=== PATIENT | male | born 1960 | race African-American/Black ===

== ENCOUNTER 2017-09-19 23:50 | Emergency (ER) | payer OTHER ==
[~2017-09-19] VITALS: Ht 180.3 cm; Wt 84.0 kg
[2017-09-20] MEDS ORDERED: IPRATROPIUM BROMIDE (0.02%) 0.5MG/2.5ML NEB HHN STA (00:20)
[2017-09-20] MEDS ORDERED: ALBUTEROL (0.083%) 2.5MG/3ML NEB HHN STA (00:20)
[2017-09-20] MEDS ORDERED: METHYLPREDNISOLONE SOD SUCC 125 MG/2 ML VIAL IV STA (00:20)
[2017-09-20 00:45] LABS: BASOPHILS % 1.5 % (0.0-2.0); EOSINOPHILS % 14.6 % (0.0-5.0); HEMOGLOBIN. 13.1 g/dL (14.0-18.0); LYMPHOCYTES % 23.8 % (20.0-50.0); MEAN CORPUSCULAR HEMOGLOBIN 28.5 pg (28.0-32.0); MEAN CORPUSCULAR VOLUME 85.2 fL (80.0-94.0); MEAN PLATELET VOLUME 8.8 fl (7.4-10.4); MONOCYTES % 10.7 % (2.0-8.0); NEUTROPHILS % 49.4 % (40.0-76.0); PLATELET 205 x1000/uL (130-400); RED BLOOD CELL COUNT 4.58 mill/uL (4.7-6.1); RED CELL DISTRIBUTION WIDTH 13.9 % (11.6-14.6)
[2017-09-20 00:48] LABS: CHLORIDE 112 mEq/L (98-107)
[2017-09-20] MEDS ORDERED: ALBUTEROL (0.5%) 2.5MG/0.5ML NEB HHN ONE (02:00)
[2017-09-20] MEDS ORDERED: SODIUM CHLORIDE 0.9% 1,000 ML IV ONE (02:00)
[2017-09-20] MEDS ORDERED: ALBUTEROL (0.083%) 2.5MG/3ML NEB ONE (02:40)
[2017-09-20 04:01] VITALS: BP 143/86
== END 2017-09-20 04:03 | disposition home or self-care (01) ==
LOC: ER 23:50
DX: J45.901 Unspecified asthma with (acute) exacerbation (principal)
CPT/HCPCS: 36415; 71045; 80053; 85025; 93005; 94640; 96361; 96374; 99285; J2930; J7030; J7611; Z7610

== ENCOUNTER 2018-08-09 06:10 | Emergency (ER) | payer OTHER ==
[~2018-08-09] VITALS: Ht 177.8 cm; Wt 84.0 kg
[2018-08-09] MEDS ORDERED: PREDNISONE 20MG TABLET PO STA (06:40)
[2018-08-09] MEDS ORDERED: IPRATROPIUM BROMIDE (0.02%) 0.5MG/2.5ML NEB HHN STA ×2 (06:40→09:40)
[2018-08-09] MEDS ORDERED: ALBUTEROL (0.083%) 2.5MG/3ML NEB HHN STA ×2 (06:40→07:52)
[2018-08-09 07:12] LABS: BG BASE EXCESS -1.2 mmol/L (-2.0-2.0); BG CARBOXYHEMOGLOBIN 2.6 % (0.5-1.5); BG DEOXYHEMOGLOBIN 13.7 % (0.0-5.0); BG FRACTION INSPIRED OXYGEN 50; BG HCO3 ACT 24.4 mmol/L (22.0-26.0); BG METHEMOGLOBIN 0.2 % (0.0-1.5); BG OXYGEN SATURATION 85.9 % (92.0-98.5); BG OXYHEMOGLOBIN 83.5 % (94.0-97.0); BG PCO2 44.2 mmHg (35.0-45.0); BG PO2 51.9 mmHg (75.0-100.0); BG SAMPLE SITE OTHER; BG TOTAL HEMOGLOBIN 14.3 g/dL (12.0-18.0)
[2018-08-09 07:31] LABS: BASOPHILS % 2.6 % (0.0-2.0); HEMATOCRIT. 43.9 % (42.0-52.0); HEMOGLOBIN. 14.2 g/dL (14.0-18.0); LYMPHOCYTES % 29.6 % (20.0-50.0); MEAN CORPUSCULAR HEMOGLOBIN 27.8 pg (28.0-32.0); MEAN CORPUSCULAR VOLUME 86.2 fL (80.0-94.0); MEAN PLATELET VOLUME 9.8 fl (7.4-10.4); MONOCYTES % 13.7 % (2.0-8.0); NEUTROPHILS % 43.1 % (40.0-76.0); PLATELET 242 x1000/uL (130-400); RED BLOOD CELL COUNT 5.09 mill/uL (4.7-6.1); RED CELL DISTRIBUTION WIDTH 13.7 % (11.6-14.6)
[2018-08-09 07:38] LABS: CHLORIDE 108 mEq/L (98-107)
[2018-08-09 11:22] VITALS: BP 154/90
[2018-10-17] MEDS ORDERED: ALBUTEROL (15:19)
== END 2018-08-09 11:26 | disposition home or self-care (01) ==
LOC: ER 06:10
DX: J45.901 Unspecified asthma with (acute) exacerbation (principal)
CPT/HCPCS: 36415; 36600; 71045; 80053; 82375; 82805; 85025; 93005; 94640; 99285; J7512; J7611; Z7610

== ENCOUNTER 2018-12-20 02:27 | Emergency (ER) | payer OTHER ==
[~2018-12-20] VITALS: Ht 180.3 cm; Wt 87.0 kg
[~2018-12-20 02:27] MED LIST: ALBUTEROL
[2018-12-20 02:35] VITALS: BP 127/60
[2018-12-20] MEDS ORDERED: IPRATROPIUM BROMIDE (0.02%) 0.5MG/2.5ML NEB HHN STA (03:00)
[2018-12-20] MEDS ORDERED: ALBUTEROL (0.083%) 2.5MG/3ML NEB HHN STA (03:00)
[2018-12-20] MEDS ORDERED: METHYLPREDNISOLONE SOD SUCC 125 MG/2 ML VIAL IM STA (03:00)
== END 2018-12-20 06:38 | disposition left against medical advice (07) ==
LOC: ER 02:27
DX: J45.901 Unspecified asthma with (acute) exacerbation (principal)
CPT/HCPCS: 94640; 96372; 99283; J2930; J7611

== ENCOUNTER 2019-01-12 22:03 | Emergency (ER) | payer OTHER ==
[~2019-01-12] VITALS: Ht 180.3 cm; Wt 84.0 kg
[2019-01-12] MEDS ORDERED: METHYLPREDNISOLONE SOD SUCC 125 MG/2 ML VIAL IV STA (22:51)
[2019-01-12] MEDS ORDERED: IPRATROPIUM BROMIDE (0.02%) 0.5MG/2.5ML NEB HHN STA (22:51)
[2019-01-12] MEDS ORDERED: ALBUTEROL (0.083%) 2.5MG/3ML NEB HHN STA (22:51)
[2019-01-13] MEDS ORDERED: ALBUTEROL (0.083%) 2.5MG/3ML NEB HHN STA ×2 (00:55→03:38)
[2019-01-13] MEDS ORDERED: IPRATROPIUM BROMIDE (0.02%) 0.5MG/2.5ML NEB HHN STA ×2 (00:55→03:38)
[2019-01-13] MEDS ORDERED: MAGNESIUM 2 G PREMIX 50 ML IV STA (00:55)
[2019-01-13 04:50] VITALS: BP 125/79
== END 2019-01-13 06:43 | disposition home or self-care (01) ==
LOC: ER 22:03
DX: J45.901 Unspecified asthma with (acute) exacerbation (principal)
CPT/HCPCS: 71045; 94640; 94644; 96365; 96366; 96375; 99285; J2930; J3475; J7611; Z7610

== ENCOUNTER 2019-05-11 07:31 | Emergency (ER) | payer OTHER ==
[~2019-05-11] VITALS: Ht 177.8 cm; Wt 88.0 kg
[2019-05-11] MEDS ORDERED: SODIUM CHLORIDE 0.9% 1,000 ML IV ONE (07:51)
[2019-05-11] MEDS ORDERED: ONDANSETRON 4MG ODT PO STA (07:51)
[2019-05-11] MEDS ORDERED: MECLIZINE 25MG TABLET PO ONE (08:00)
[2019-05-11] MEDS ORDERED: ACETAMINOPHEN 325MG TABLET PO ONE (11:15)
[2019-05-11 11:21] LABS: BASOPHILS % 1.1 % (0.0-2.0); EOSINOPHILS % 3.3 % (0.0-5.0); HEMATOCRIT. 43.6 % (42.0-52.0); HEMOGLOBIN. 14.4 g/dL (14.0-18.0); LYMPHOCYTES % 23.6 % (20.0-50.0); MEAN CORPUSCULAR HEMOGLOBIN 28.4 pg (28.0-32.0); MEAN CORPUSCULAR VOLUME 86.2 fL (80.0-94.0); MEAN PLATELET VOLUME 9.4 fl (7.4-10.4); MONOCYTES % 8.9 % (2.0-8.0); NEUTROPHILS % 63.1 % (40.0-76.0); PLATELET 248 x1000/uL (130-400); RED BLOOD CELL COUNT 5.06 mill/uL (4.7-6.1); RED CELL DISTRIBUTION WIDTH 14.1 % (11.6-14.6)
[2019-05-11 11:26] LABS: CHLORIDE 108 mEq/L (98-107); PROTHROMBIN TIME 9.8 sec (9.6-11.0)
[2019-05-11 13:40] VITALS: BP 135/75
== END 2019-05-11 13:55 | disposition home or self-care (01) ==
LOC: ER 07:31
DX: R42 Dizziness and giddiness (principal); R11.0 Nausea; J45.909 Unspecified asthma, uncomplicated; Z82.49 Family history of ischemic heart disease and other diseases of the circulatory system
CPT/HCPCS: 36415; 70450; 71045; 80053; 85025; 85610; 93005; 96360; 96361; 99284; J7030; J8597; Q0162

== ENCOUNTER 2019-06-18 15:57 | Emergency (ER) | payer OTHER ==
[~2019-06-18] VITALS: Ht 177.8 cm; Wt 88.0 kg
[2019-06-18 16:01] VITALS: BP 141/90
[2019-06-18] MEDS: NAPROXEN 250MG TABLET PO ONE (16:30)
== END 2019-06-18 17:37 | disposition home or self-care (01) ==
LOC: ER 15:57
DX: S63.681A Other sprain of right thumb, initial encounter (principal); X58.XXXA Exposure to other specified factors, initial encounter; Y93.89 Activity, other specified; Y92.89 Other specified places as the place of occurrence of the external cause; Y99.8 Other external cause status; J45.909 Unspecified asthma, uncomplicated
CPT/HCPCS: 29125; 73130; 99283

== ENCOUNTER 2019-07-06 11:25 | Emergency (ER) | payer OTHER ==
[~2019-07-06] VITALS: Ht 167.6 cm; Wt 72.0 kg
[2019-07-06] MEDS ORDERED: METHYLPREDNISOLONE SOD SUCC 125 MG/2 ML VIAL IV STA (11:35)
[2019-07-06] MEDS ORDERED: SODIUM CHLORIDE 0.9% 1,000 ML IV ONE (11:35)
[2019-07-06] MEDS ORDERED: ALBUTEROL (0.083%) 2.5MG/3ML NEB HHN STA (11:35)
[2019-07-06] MEDS ORDERED: IPRATROPIUM BROMIDE (0.02%) 0.5MG/2.5ML NEB HHN STA (11:35)
[2019-07-06 12:36] LABS: CHLORIDE 109 mEq/L (98-107)
[2019-07-06 12:37] LABS: BASOPHILS % 1.3 % (0.0-2.0); EOSINOPHILS % 11.3 % (0.0-5.0); HEMATOCRIT. 39.6 % (42.0-52.0); HEMOGLOBIN. 13.1 g/dL (14.0-18.0); LYMPHOCYTES % 25.4 % (20.0-50.0); MEAN CORPUSCULAR HEMOGLOBIN 28.1 pg (28.0-32.0); MEAN CORPUSCULAR VOLUME 84.7 fL (80.0-94.0); MEAN PLATELET VOLUME 9.5 fl (7.4-10.4); MONOCYTES % 10.9 % (2.0-8.0); NEUTROPHILS % 51.1 % (40.0-76.0); PLATELET 205 x1000/uL (130-400); RED BLOOD CELL COUNT 4.67 mill/uL (4.7-6.1); RED CELL DISTRIBUTION WIDTH 13.9 % (11.6-14.6)
[2019-07-06] MEDS ORDERED: ALBUTEROL (0.083%) 2.5MG/3ML NEB HHN ONE (14:00)
[2019-07-06 15:47] VITALS: BP 134/89
== END 2019-07-06 16:10 | disposition home or self-care (01) ==
LOC: ER 11:25
DX: J45.901 Unspecified asthma with (acute) exacerbation (principal)
CPT/HCPCS: 36415; 71045; 80053; 85025; 93005; 94640; 94644; 96374; 99285; J2930; J7030; J7611; Z7610

== ENCOUNTER 2019-07-06 18:04 | Inpatient (IN) | payer OTHER ==
[~2019-07-06] VITALS: Ht 172.7 cm; Wt 77.1 kg
[~2019-07-06 18:04] MED LIST changes: +ALBUTEROL (0.083%) 2.5MG/3ML NEB HHN STA; +SODIUM CHLORIDE 0.9% 1,000 ML IV ONE
[2019-07-06] MEDS ORDERED: SODIUM CHLORIDE 0.9% 1,000 ML IV ONE (18:14)
[2019-07-06] MEDS ORDERED: ALBUTEROL (0.083%) 2.5MG/3ML NEB HHN STA ×2 (18:14→21:09)
[2019-07-06] MEDS ORDERED: IPRATROPIUM BROMIDE (0.02%) 0.5MG/2.5ML NEB HHN STA ×2 (18:14→21:09)
[2019-07-06] MEDS ORDERED: LORAZEPAM 2MG/ML CPJ IV ONE (18:15)
[2019-07-06] MEDS ORDERED: MAGNESIUM 2 G PREMIX 50 ML IV ONE (18:15)
[2019-07-06] MEDS ORDERED: LORAZEPAM 2MG/ML CPJ ONE (18:18)
[2019-07-06] MEDS ORDERED: IPRATROPIUM/ALBUTEROL 0.5-3(2.5)MG/3ML NEB ONE (18:40)
[2019-07-06] MEDS ORDERED: DEXT 5%/0.45% NACL KCL 20MEQ/L 1,000 ML IV ONE (19:30)
[2019-07-06 19:48] LABS: BG BASE EXCESS -4.2 mmol/L (-2.0-2.0); BG CARBOXYHEMOGLOBIN 0.4 % (0.5-1.5); BG DEOXYHEMOGLOBIN 1.4 % (0.0-5.0); BG FRACTION INSPIRED OXYGEN 55; BG HCO3 ACT 21.5 mmol/L (22.0-26.0); BG METHEMOGLOBIN 0.4 % (0.0-1.5); BG OXYGEN SATURATION 98.6 % (92.0-98.5); BG OXYHEMOGLOBIN 97.8 % (94.0-97.0); BG PCO2 41.4 mmHg (35.0-45.0); BG PH 7.333 (7.350-7.450); BG PO2 142.1 mmHg (75.0-100.0); BG SAMPLE SITE RIGHT RADIAL; BG TOTAL HEMOGLOBIN 12.8 g/dL (12.0-18.0)
[2019-07-06] MEDS ORDERED: LEVOFLOXACIN 500MG PREMIX 100 ML IV ONE (20:30)
[2019-07-06] MEDS ORDERED: HYDROCODONE/ACETAMINOPHEN 5/325MG TABLET PO PRN (21:30)
[2019-07-06] MEDS ORDERED: ACETAMINOPHEN 325MG TABLET PO PRN (21:30)
[2019-07-06] MEDS ORDERED: LEVOFLOXACIN 500MG PREMIX 100 ML IV SCH (21:30)
[2019-07-06] MEDS ORDERED: MAGNESIUM/ALUMINUM HYDROXIDE/SIMETHICONE 30ML UDC PO PRN (21:30)
[2019-07-06] MEDS ORDERED: GUAIFENESIN 200MG/10ML SUGAR FREE UDC PO PRN (21:30)
[2019-07-06] MEDS ORDERED: DOCUSATE SODIUM 100MG CAPSULE PO PRN (21:30)
[2019-07-06 21:59] LABS: HEMATOCRIT. 36.6 % (42.0-52.0); MEAN CORPUSCULAR HEMOGLOBIN 28.1 pg (28.0-32.0); MEAN CORPUSCULAR VOLUME 85.9 fL (80.0-94.0); PLATELET 225 x1000/uL (130-400); RED BLOOD CELL COUNT 4.27 mill/uL (4.7-6.1); RED CELL DISTRIBUTION WIDTH 14.4 % (11.6-14.6)
[2019-07-06 22:04] LABS: CHLORIDE 107 mEq/L (98-107)
[2019-07-06 22:13] LABS: CREATINE KINASE MB FRACTION 6.3 ng/mL (0.5-3.6)
[2019-07-06] MEDS ORDERED: ASPIRIN 81MG TABLET PO ONE (22:30)
[2019-07-06 22:40] LABS: PLATELET ESTIMATE NORMAL
[2019-07-06 22:51] LABS: PROTHROMBIN TIME 10.4 sec (9.6-11.0)
[2019-07-07] VITALS (32 sets, daily range): BP systolic 112–176; BP diastolic 70–122
[2019-07-07] MEDS: METHYLPREDNISOLONE SOD SUCC 40 MG/ML VIAL IV SCH ×4 (01:03→20:28)
[2019-07-07] MEDS: METOPROLOL TARTRATE 25MG TABLET PO SCH (01:07)
[2019-07-07] MEDS: CLONIDINE 0.1MG TABLET PO PRN ×2 (01:48→06:18)
[2019-07-07] MEDS: IPRATROPIUM/ALBUTEROL 0.5-3(2.5)MG/3ML NEB NEB SCH ×4 (01:49→08:08)
[2019-07-07 02:49] LABS: CLARITY URINE CLEAR (CLEAR); COLOR URINE YELLOW (YELLOW); KETONES URINE TRACE (NEGATIVE); LEUKOCYTE ESTERASE URINE NEGATIVE (NEGATIVE); NITRITE URINE NEGATIVE (NEGATIVE); OCCULT BLOOD URINE 1+ (NEGATIVE); PROTEIN URINE 2+ (NEGATIVE); SPECIFIC GRAVITY URINE 1.023 (1.005-1.030); UROBILINOGEN URINE 0.2 E.U./dL (0.2-1.0)
[2019-07-07 02:57] LABS: *AMPHETAMINES SCREEN URINE NEGATIVE (NEGATIVE); *BARBITURATES SCREEN URINE NEGATIVE (NEGATIVE); *BENZODIAZEPINES SCREEN URINE NEGATIVE (NEGATIVE); *COCAINE SCREEN URINE NEGATIVE (NEGATIVE); METHADONE URINE SCREEN NEGATIVE (NEGATIVE); OPIATES URINE SCREEN NEGATIVE (NEGATIVE)
[2019-07-07 02:58] LABS: CANNABINOID URINE SCREEN PRESUMTIVE POSITIVE (NEGATIVE); PHENCYCLIDINE URINE SCREEN NEGATIVE (NEGATIVE)
[2019-07-07] MEDS: NITROGLYCERIN 0.2MG/HR PATCH TOP SCH (03:05)
[2019-07-07] MEDS: LEVOFLOXACIN 500MG PREMIX 100 ML IV SCH (03:06)
[2019-07-07] MEDS: IPRATROPIUM/ALBUTEROL 0.5-3(2.5)MG/3ML NEB NEB PRN ×2 (05:04→09:51)
[2019-07-07 05:47] LABS: HEMATOCRIT. 37.7 % (42.0-52.0); HEMOGLOBIN. 12.2 g/dL (14.0-18.0); MEAN CORPUSCULAR HEMOGLOBIN 27.6 pg (28.0-32.0); MEAN CORPUSCULAR VOLUME 85.4 fL (80.0-94.0); MEAN PLATELET VOLUME 9.5 fl (7.4-10.4); PLATELET 223 x1000/uL (130-400); RED BLOOD CELL COUNT 4.42 mill/uL (4.7-6.1); RED CELL DISTRIBUTION WIDTH 14.3 % (11.6-14.6)
[2019-07-07 06:04] LABS: CREATINE KINASE MB FRACTION 14.3 ng/mL (0.5-3.6)
[2019-07-07] MEDS: OMEPRAZOLE 20MG CAPSULE EXTENDED RELEASE PO SCH (06:17)
[2019-07-07] MEDS ORDERED: ENOXAPARIN 40MG/0.4ML SYR SUBCUT SCH (09:00)
[2019-07-07] MEDS ORDERED: ASPIRIN 81MG EC TABLET PO SCH (09:00)
[2019-07-07 09:24] LABS: CHLORIDE 109 mEq/L (98-107)
[2019-07-07] MEDS ORDERED: DEXTROSE 50% WATER 50ML SYRINGE IV PRN (10:45)
[2019-07-07] MEDS: BLOOD SUGAR DIAGNOSTIC STRIP TEST SCH ×3 (11:33→20:20)
[2019-07-07] MEDS: INSULIN LISPRO 100 UNITS/ML SUBCUT SCH ×3 (11:34→20:21)
[2019-07-07] MEDS: ENOXAPARIN 80MG/0.8ML SYR SUBCUT SCH ×2 (11:34→20:28)
[2019-07-07] MEDS: SODIUM CHLORIDE 0.9% 1,000 ML IV SCH ×2 (11:34→20:29)
[2019-07-07] MEDS: ALBUTEROL (0.083%) 2.5MG/3ML NEB HHN PRN ×5 (12:21→22:30)
[2019-07-07] MEDS ORDERED: METHYLPREDNISOLONE SOD SUCC 40 MG/ML VIAL IV SCH (12:45)
[2019-07-07 12:53] LABS: PLATELET ESTIMATE NORMAL
[2019-07-07] MEDS: ALBUTEROL (0.083%) 2.5MG/3ML NEB HHN SCH (20:06)
[2019-07-07] MEDS: ATORVASTATIN CALCIUM 40MG TABLET PO SCH (20:28)
[2019-07-07] MEDS: ASPIRIN 81MG EC TABLET PO SCH (20:28)
[2019-07-08] VITALS (42 sets, daily range): BP systolic 101–185; BP diastolic 61–121
[2019-07-08] MEDS: ALBUTEROL (0.083%) 2.5MG/3ML NEB HHN SCH ×3 (00:19→08:49)
[2019-07-08] MEDS: ACETYLCYSTEINE 100MG/ML 10% VIAL 4ML INH SCH ×2 (00:21→12:36)
[2019-07-08 01:05] LABS: CREATINE KINASE 4496 IU/L (39-308)
[2019-07-08] MEDS: METHYLPREDNISOLONE SOD SUCC 40 MG/ML VIAL IV SCH ×2 (02:28→08:49)
[2019-07-08] MEDS: LEVOFLOXACIN 500MG PREMIX 100 ML IV SCH (03:15)
[2019-07-08] MEDS: NITROGLYCERIN 0.2MG/HR PATCH TOP SCH (03:15)
[2019-07-08 05:18] LABS: HEMATOCRIT. 35.7 % (42.0-52.0); HEMOGLOBIN. 11.8 g/dL (14.0-18.0); MEAN CORPUSCULAR HEMOGLOBIN 28.1 pg (28.0-32.0); MEAN CORPUSCULAR VOLUME 85.1 fL (80.0-94.0); MEAN PLATELET VOLUME 9.7 fl (7.4-10.4); PLATELET 222 x1000/uL (130-400); RED CELL DISTRIBUTION WIDTH 14.7 % (11.6-14.6)
[2019-07-08 05:31] LABS: CHLORIDE 106 mEq/L (98-107)
[2019-07-08 05:41] LABS: LDL CHOLESTEROL 80 mg/dL (5-100)
[2019-07-08 05:42] LABS: CREATINE KINASE MB FRACTION 20.7 ng/mL (0.5-3.6); HDL CHOLESTEROL 46 mg/dL (40-59)
[2019-07-08 05:55] LABS: CREATINE KINASE 3940 IU/L (39-308)
[2019-07-08] MEDS: INSULIN LISPRO 100 UNITS/ML SUBCUT SCH ×4 (07:00→20:58)
[2019-07-08] MEDS: BLOOD SUGAR DIAGNOSTIC STRIP TEST SCH ×4 (07:03→20:27)
[2019-07-08] MEDS: OMEPRAZOLE 20MG CAPSULE EXTENDED RELEASE PO SCH (07:04)
[2019-07-08] MEDS: SODIUM CHLORIDE 0.9% 1,000 ML IV SCH (08:06)
[2019-07-08 08:30] LABS: PLATELET ESTIMATE NORMAL
[2019-07-08] MEDS: ASPIRIN 81MG EC TABLET PO SCH ×2 (08:49→20:27)
[2019-07-08] MEDS: ENOXAPARIN 80MG/0.8ML SYR SUBCUT SCH ×2 (08:50→20:27)
[2019-07-08] MEDS: METOPROLOL TARTRATE 25MG TABLET PO SCH (08:50)
[2019-07-08 09:47] LABS: BG BASE EXCESS 2.5 mmol/L (-2.0-2.0); BG BILEVEL POS AIRWAY PRESSURE 20/5; BG CARBOXYHEMOGLOBIN 0.3 % (0.5-1.5); BG DEOXYHEMOGLOBIN 1.4 % (0.0-5.0); BG FRACTION INSPIRED OXYGEN 40; BG HCO3 ACT 28.5 mmol/L (22.0-26.0); BG METHEMOGLOBIN 0.4 % (0.0-1.5); BG OXYGEN SATURATION 98.6 % (92.0-98.5); BG OXYHEMOGLOBIN 97.9 % (94.0-97.0); BG PCO2 49.7 mmHg (35.0-45.0); BG PH 7.376 (7.350-7.450); BG SAMPLE SITE RIGHT RADIAL; BG TOTAL HEMOGLOBIN 12.7 g/dL (12.0-18.0); BG VENT MODE MASK - BIPAP; BG VENT RATE 16 set
[2019-07-08 09:48] LABS: BG BASE EXCESS -1.6 mmol/L (-2.0-2.0); BG BILEVEL POS AIRWAY PRESSURE 20/7; BG CARBOXYHEMOGLOBIN 0.3 % (0.5-1.5); BG DEOXYHEMOGLOBIN 1.1 % (0.0-5.0); BG FRACTION INSPIRED OXYGEN 40; BG HCO3 ACT 23.9 mmol/L (22.0-26.0); BG METHEMOGLOBIN 0.3 % (0.0-1.5); BG OXYGEN SATURATION 98.9 % (92.0-98.5); BG OXYHEMOGLOBIN 98.3 % (94.0-97.0); BG PCO2 43.6 mmHg (35.0-45.0); BG PH 7.357 (7.350-7.450); BG PO2 167.1 mmHg (75.0-100.0); BG SAMPLE SITE RIGHT RADIAL; BG TOTAL HEMOGLOBIN 12.9 g/dL (12.0-18.0); BG VENT MODE MASK - BIPAP; BG VENT RATE 16 set
[2019-07-08 09:49] LABS: BG BASE EXCESS -3.8 mmol/L (-2.0-2.0); BG BILEVEL POS AIRWAY PRESSURE 20/7; BG CARBOXYHEMOGLOBIN 0.3 % (0.5-1.5); BG FRACTION INSPIRED OXYGEN 40; BG HCO3 ACT 21.2 mmol/L (22.0-26.0); BG METHEMOGLOBIN 0.2 % (0.0-1.5); BG OXYHEMOGLOBIN 98.5 % (94.0-97.0); BG PCO2 38.3 mmHg (35.0-45.0); BG PH 7.361 (7.350-7.450); BG PO2 177.4 mmHg (75.0-100.0); BG SAMPLE SITE RIGHT RADIAL; BG TOTAL HEMOGLOBIN 12.8 g/dL (12.0-18.0); BG VENT MODE MASK - BIPAP; BG VENT RATE 16 set
[2019-07-08] MEDS: ALBUTEROL (0.083%) 2.5MG/3ML NEB HHN PRN (12:20)
[2019-07-08] MEDS: LORATADINE 10MG TABLET PO SCH (12:30)
[2019-07-08] MEDS: AMLODIPINE 5MG TABLET PO SCH ×2 (12:30→20:27)
[2019-07-08] MEDS: CLONIDINE 0.1MG TABLET PO PRN (12:31)
[2019-07-08] MEDS: IPRATROPIUM/ALBUTEROL 0.5-3(2.5)MG/3ML NEB HHN SCH ×3 (12:36→20:09)
[2019-07-08] MEDS: METHYLPREDNISOLONE SOD SUCC 125 MG/2 ML VIAL IV SCH ×2 (15:33→20:26)
[2019-07-08 16:28] LABS: CREATINE KINASE 3190 IU/L (39-308)
[2019-07-08] MEDS: MONTELUKAST SODIUM 10MG TABLET PO SCH (17:04)
[2019-07-08] MEDS: ATORVASTATIN CALCIUM 40MG TABLET PO SCH (20:27)
[2019-07-08] MEDS: PANTOPRAZOLE SODIUM 40 MG/VIAL IV SCH (20:56)
[2019-07-08] MEDS ORDERED: FAMOTIDINE 40MG TABLET PO SCH (21:00)
[2019-07-08 22:27] LABS: CREATINE KINASE 2568 IU/L (39-308)
[2019-07-09] VITALS (40 sets, daily range): BP systolic 106–167; BP diastolic 27–101
[2019-07-09] MEDS: ACETYLCYSTEINE 100MG/ML 10% VIAL 4ML INH SCH ×3 (00:21→16:29)
[2019-07-09] MEDS: IPRATROPIUM/ALBUTEROL 0.5-3(2.5)MG/3ML NEB HHN SCH ×6 (00:21→20:01)
[2019-07-09] MEDS: METHYLPREDNISOLONE SOD SUCC 125 MG/2 ML VIAL IV SCH ×2 (03:12→08:04)
[2019-07-09] MEDS: LEVOFLOXACIN 500MG PREMIX 100 ML IV SCH (03:13)
[2019-07-09] MEDS: INSULIN LISPRO 100 UNITS/ML SUBCUT SCH ×4 (05:45→21:00)
[2019-07-09] MEDS: BLOOD SUGAR DIAGNOSTIC STRIP TEST SCH ×4 (05:45→21:00)
[2019-07-09 06:20] LABS: CHLORIDE 100 mEq/L (98-107)
[2019-07-09 06:26] LABS: BASOPHILS % 0.5 % (0.0-2.0); HEMATOCRIT. 39.7 % (42.0-52.0); LYMPHOCYTES % 7.8 % (20.0-50.0); MEAN CORPUSCULAR HEMOGLOBIN 27.7 pg (28.0-32.0); MEAN PLATELET VOLUME 9.3 fl (7.4-10.4); MONOCYTES % 4.8 % (2.0-8.0); NEUTROPHILS % 86.9 % (40.0-76.0); PLATELET 238 x1000/uL (130-400); RED BLOOD CELL COUNT 4.67 mill/uL (4.7-6.1); RED CELL DISTRIBUTION WIDTH 13.8 % (11.6-14.6)
[2019-07-09] MEDS: LORATADINE 10MG TABLET PO SCH (08:06)
[2019-07-09] MEDS: ASPIRIN 81MG EC TABLET PO SCH ×2 (08:06→20:10)
[2019-07-09] MEDS: AMLODIPINE 5MG TABLET PO SCH ×2 (08:06→20:10)
[2019-07-09] MEDS: ONDANSETRON HCL 4MG/2ML INJ IV PRN ×2 (08:38→20:10)
[2019-07-09] MEDS: ENOXAPARIN 80MG/0.8ML SYR SUBCUT SCH ×2 (08:42→21:00)
[2019-07-09] MEDS ORDERED: LOSARTAN POTASSIUM 25 MG TABLET PO SCH (10:45)
[2019-07-09] MEDS ORDERED: METHYLPREDNISOLONE SOD SUCC 40 MG/ML VIAL IV SCH (14:00)
[2019-07-09] MEDS: MONTELUKAST SODIUM 10MG TABLET PO SCH (17:32)
[2019-07-09] MEDS: PANTOPRAZOLE SODIUM 40 MG/VIAL IV SCH (20:10)
[2019-07-09] MEDS: ATORVASTATIN CALCIUM 40MG TABLET PO SCH (20:10)
== END 2019-07-09 21:44 | disposition short-term general hospital (02) | DRG 280 ==
LOC: ER 18:04 → MICUSO 19:07 → EDBEDREQ 19:26 → EDBEDREQTM 19:26 → ENRESERV 20:49 → EDBEDREQ 22:26 → EDBEDREQTM 22:26 → EDBEDREQSVC 22:26 → ENRESERV 22:33
PROVIDERS: ADMIT Internal Medicine; ATTEND Internal Medicine
PROC: 5A09457 Assistance with Respiratory Ventilation, 24-96 Consecutive Hours, Continuous Positive Airway Pressure (ICD-10-PCS; principal; 2019-07-06)
PROC: 5A09357 Assistance with Respiratory Ventilation, Less than 24 Consecutive Hours, Continuous Positive Airway Pressure (ICD-10-PCS; 2019-07-08)
DX: I21.4 Non-ST elevation (NSTEMI) myocardial infarction (principal); J96.01 Acute respiratory failure with hypoxia; J45.21 Mild intermittent asthma with (acute) exacerbation; M62.82 Rhabdomyolysis; D64.9 Anemia, unspecified; D72.829 Elevated white blood cell count, unspecified; E11.65 Type 2 diabetes mellitus with hyperglycemia; F12.90 Cannabis use, unspecified, uncomplicated; T38.0X5A Adverse effect of glucocorticoids and synthetic analogues, initial encounter; F17.200 Nicotine dependence, unspecified, uncomplicated; I10 Essential (primary) hypertension; I25.2 Old myocardial infarction; Y92.89 Other specified places as the place of occurrence of the external cause; Z95.1 Presence of aortocoronary bypass graft
CPT/HCPCS: 36415; 36600; 71045; 74018; 78580; 80048; 80053; 80061; 80305; 81003; 82375; 82550; 82553; 82805; 82962; 83036; 83735; 83880; 84443; 84484; 85025; 85379; 93005; 93306; 93970; 96365; 99291; C9113; J1650; J1815; J1956; J2060; J2405; J2920; J2930; J3475; J7030; J7608; J7611; J7620

== ENCOUNTER 2022-03-22 11:06 | Emergency (ER) | payer OTHER ==
[~2022-03-22] VITALS: Ht 175.3 cm; Wt 71.0 kg
[~2022-03-22 11:06] MED LIST changes: -ALBUTEROL (0.083%) 2.5MG/3ML NEB HHN STA; -SODIUM CHLORIDE 0.9% 1,000 ML IV ONE
[2022-03-22 11:49] VITALS: BP 145/79
== END 2022-03-22 12:43 | disposition home or self-care (01) ==
LOC: ER 11:06
DX: H92.02 Otalgia, left ear (principal); J45.909 Unspecified asthma, uncomplicated
CPT/HCPCS: 99281

== ENCOUNTER 2025-05-16 09:59 | Emergency (ER) | payer OTHER ==
[~2025-05-16] VITALS: Ht 177.8 cm; Wt 88.0 kg
[2025-05-16 10:23] VITALS: PULSE 113; RESP 28; O2SAT 95
[2025-05-16] MEDS: ALBUTEROL (0.083%) 2.5MG/3ML NEB HHN SCH (10:23)
[2025-05-16] MEDS: IPRATROPIUM BROMIDE (0.02%) 0.5MG/2.5ML NEB HHN SCH (10:24)
[2025-05-16 10:35] LABS: BASOPHILS % 1.1 % (0.0-2.0); EOSINOPHILS % 4.0 % (0.0-5.0); HEMATOCRIT. 34.7 % (42.0-52.0); HEMOGLOBIN. 11.4 g/dL (14.0-18.0); LYMPHOCYTES % 17.9 % (20.0-50.0); MEAN PLATELET VOLUME 9.1 fl (7.4-10.4); MONOCYTES % 12.7 % (2.0-8.0); NEUTROPHILS % 64.3 % (40.0-76.0); PLATELET 207 x1000/uL (130-400); RED BLOOD CELL COUNT 4.09 mill/uL (4.7-6.1); RED CELL DISTRIBUTION WIDTH 13.9 % (11.6-14.6)
[2025-05-16 10:56] LABS: CREATININE 1.0 mg/dL (0.6-1.3); TROPONIN I HIGH SENSITIVITY < 4 ng/L (3.0-53)
[2025-05-16 10:57] LABS: UREA NITROGEN BLOOD 7 mg/dL (9-23)
[2025-05-16 10:58] LABS: ASPARTATE AMINOTRANSFERASE 23 IU/L (<34)
[2025-05-16 10:59] LABS: BILIRUBIN DIRECT 0.2 mg/dL (<=3.0); BILIRUBIN TOTAL 0.4 mg/dL (0.1-1.0); PROTEIN TOTAL 6.7 g/dL (6.0-8.3)
[2025-05-16] MEDS: PREDNISONE 20MG TABLET PO ONE (11:23)
[2025-05-16] MEDS: ALBUTEROL (0.083%) 2.5MG/3ML NEB HHN ONE (12:38)
[2025-05-16 13:14] LABS: TROPONIN I HIGH SENSITIVITY < 4 ng/L (3.0-53)
[2025-05-16] MEDS ORDERED: P20 MT (14:27)
[2025-05-16 14:55] VITALS: BP 130/70; PULSE 99; RESP 17; TEMP 36.7; O2SAT 99
[2025-05-17] MEDS ORDERED: METF-1149 MT (13:45)
[2025-05-17] MEDS ORDERED: LIP40 MT (13:45)
== END 2025-05-16 14:56 | disposition home or self-care (01) ==
LOC: ER 09:59
DX: J45.901 Unspecified asthma with (acute) exacerbation (principal); D64.9 Anemia, unspecified
CPT/HCPCS: 80076; 80048; 85025; 84484; 36415; 71045; 93005; 94644; 99285; J7512; Z7610; 94070; 94640; 94664; 98960

== ENCOUNTER 2025-05-17 02:27 | Inpatient (IN) | payer OTHER ==
[~2025-05-17] VITALS: Ht 177.8 cm; Wt 85.7 kg
[2025-05-17] VITALS (10 sets, daily range): BP systolic 144–159; BP diastolic 88–94; PULSE 99–114; RESP 16–22; TEMP 36.696–37.2; O2SAT 95–100
[~2025-05-17 02:27] MED LIST changes: +P20 MT
[2025-05-17 02:45] LABS: BASOPHILS % 0.6 % (0.0-2.0); EOSINOPHILS % 0.1 % (0.0-5.0); HEMATOCRIT. 39.2 % (42.0-52.0); HEMOGLOBIN. 12.6 g/dL (14.0-18.0); LYMPHOCYTES % 10.0 % (20.0-50.0); MEAN PLATELET VOLUME 8.9 fl (7.4-10.4); MONOCYTES % 3.0 % (2.0-8.0); NEUTROPHILS % 86.3 % (40.0-76.0); PLATELET 257 x1000/uL (130-400); RED BLOOD CELL COUNT 4.63 mill/uL (4.7-6.1); RED CELL DISTRIBUTION WIDTH 14.1 % (11.6-14.6)
[2025-05-17] MEDS: METHYLPREDNISOLONE SOD SUCC 125MG/2ML (ACT-O-VIAL) IV ONE (02:48)
[2025-05-17] MEDS: MAGNESIUM 2 G PREMIX 50 ML IV ONE (02:49)
[2025-05-17 02:57] LABS: BG DEOXYHEMOGLOBIN 2.7 % (0.0-5.0)
[2025-05-17 03:02] LABS: CREATININE 1.2 mg/dL (0.6-1.3); UREA NITROGEN BLOOD 12 mg/dL (9-23)
[2025-05-17 03:03] LABS: TROPONIN I HIGH SENSITIVITY 7 ng/L (3.0-53)
[2025-05-17] MEDS: IPRATROPIUM BROMIDE (0.02%) 0.5MG/2.5ML NEB HHN ONE ×2 (03:50→09:55)
[2025-05-17] MEDS: ALBUTEROL (0.083%) 2.5MG/3ML NEB HHN ONE (03:51)
[2025-05-17] MEDS: SODIUM CHLORIDE 0.9% (SEPSIS BOLUS) IV ONE (04:13)
[2025-05-17 04:37] LABS: INFLUENZA TYPE A Presumptive Negative (Pres. Neg.)
[2025-05-17 04:38] LABS: INFLUENZA TYPE B Presumptive Negative (Pres. Neg.)
[2025-05-17] MEDS: PIPERACILLIN/TAZO 3.375G/50ML 50 ML IV NR (04:41)
[2025-05-17] MEDS: VANCOMYCIN 1G PREMIX 200 ML IV NR (05:13)
[2025-05-17 05:15] LABS: *AMPHETAMINES SCREEN URINE NEGATIVE (NEGATIVE); *BARBITURATES SCREEN URINE NEGATIVE (NEGATIVE); *BENZODIAZEPINES SCREEN URINE NEGATIVE (NEGATIVE); *COCAINE SCREEN URINE NEGATIVE (NEGATIVE); CANNABINOID URINE SCREEN PRESUMPTIVE POSITIVE (NEGATIVE); ECSTASY MDMA SCREEN URINE NEGATIVE (NEGATIVE); METHADONE URINE SCREEN NEGATIVE (NEGATIVE); OPIATES URINE SCREEN NEGATIVE (NEGATIVE); PHENCYCLIDINE URINE SCREEN NEGATIVE (NEGATIVE)
[2025-05-17] MEDS: IOHEXOL-350 100 ML BOTTLE ONE (05:20)
[2025-05-17] MEDS: ALBUTEROL (0.083%) 2.5MG/3ML NEB HHN NR (08:48)
[2025-05-17] MEDS: IPRATROPIUM BROMIDE (0.02%) 0.5MG/2.5ML NEB HHN SCH (10:00)
[2025-05-17] MEDS: IPRATROPIUM/ALBUTEROL 0.5-3(2.5)MG/3ML NEB HHN SCH ×2 (11:19→16:25)
[2025-05-17] MEDS: ENOXAPARIN 40MG/0.4ML SYR SUBCUT SCH (13:36)
[2025-05-17] MEDS ORDERED: LIP40 MT (13:45)
[2025-05-17] MEDS ORDERED: METF-1149 MT (13:45)
[2025-05-17] MEDS: METHYLPREDNISOLONE SOD SUCC 40MG/ML (ACT-O-VIAL) IV SCH (14:16)
[2025-05-17] MEDS ORDERED: IPRATROPIUM/ALBUTEROL 0.5-3(2.5)MG/3ML NEB HHN PRN (16:00)
== END 2025-05-17 18:29 | disposition short-term general hospital (02) | DRG 189 ==
LOC: ER 02:38 → 8WST 05:28 → EDBEDREQTM 07:27 → EDBEDREQ 07:27
PROVIDERS: ADMIT Internal Medicine; ATTEND Internal Medicine
DX: J96.00 Acute respiratory failure, unspecified whether with hypoxia or hypercapnia (principal); J44.1 Chronic obstructive pulmonary disease with (acute) exacerbation; D64.9 Anemia, unspecified; J45.901 Unspecified asthma with (acute) exacerbation; Z20.822 Contact with and (suspected) exposure to COVID-19; F17.210 Nicotine dependence, cigarettes, uncomplicated; F12.90 Cannabis use, unspecified, uncomplicated; Z79.899 Other long term (current) drug therapy; Z71.6 Tobacco abuse counseling
CPT/HCPCS: 36415; 71045; 71275; 80048; 80305; 80320; 82375; 82803; 83605; 83880; 84484; 85025; 85379; 87426; 87804; 93005; 94070; 94640; 94664; 96365; 96375; 98960; 99291; J1650; J2543; J2919; J3373; J3475; Q9967; G0480